=== PATIENT | female | born 1985 | race Two or more races ===

== ENCOUNTER 2018-08-08 18:10 | Emergency (ER) | payer MEDICAID ==
[~2018-08-08] VITALS: Ht 172.7 cm; Wt 95.3 kg
[2018-08-08 18:27] VITALS: BP 137/65
[2018-08-08] MEDS ORDERED: HYDROcodone-ACET 10/325MG TAB PO ONE (20:00)
== END 2018-08-08 21:01 | disposition home or self-care (01) ==
LOC: ER 18:10
DX: S20.219A Contusion of unspecified front wall of thorax, initial encounter (principal); M62.838 Other muscle spasm; V49.69XA Unspecified car occupant injured in collision with other motor vehicles in traffic accident, initial encounter; Y93.89 Activity, other specified; Y99.8 Other external cause status; Y92.488 Other paved roadways as the place of occurrence of the external cause
CPT/HCPCS: 71046; 72040